=== PATIENT | female | born 1995 | race Caucasian/White ===

== ENCOUNTER → 2018-02-13 | Outpatient (CLI) | payer OTHER ==
[~2018-02-13] MED LIST: Cleocin HCl300 MG PO; Naprosyn500 MG PO; ONDA4 PO
[2018-02-15 04:52] LABS: Source Cervix
== END ==
LOC: LAB SHORT 11:24 → LAB 11:24
PROVIDERS: Registered Nurse Community Health
DX: Z12.4 Encounter for screening for malignant neoplasm of cervix (principal)
CPT/HCPCS: G0123

== ENCOUNTER → 2020-11-24 | Outpatient (CLI) | payer OTHER | LOC: LAB 19:25 → LAB SHORT 19:25 | DX: E03.9 Hypothyroidism, unspecified (principal); R63.5 Abnormal weight gain | CPT/HCPCS: 84443 ==

== ENCOUNTER → 2021-01-22 | Outpatient (CLI) | payer OTHER | LOC: PLD 08:08 → LAB SHORT 08:08 | DX: L81.8 Other specified disorders of pigmentation (principal) | CPT/HCPCS: 88305; 88312 ==

== ENCOUNTER → 2021-02-22 | Outpatient (CLI) | payer OTHER ==
[2021-02-22 20:46] LABS: Free Thyroxine 1.02 ng/dL (0.70-1.60)
[2021-02-22 20:51] LABS: Thyroid Stimulating Hormone 3.48 uIU/mL (0.360-4.800)
== END ==
LOC: LAB 17:15 → LAB SHORT 17:15
PROVIDERS: Registered Nurse Community Health
DX: E03.9 Hypothyroidism, unspecified (principal)
CPT/HCPCS: 84439; 84443

== ENCOUNTER → 2021-04-15 | Outpatient (CLI) | payer OTHER | LOC: LAB 09:44 → LAB SHORT 09:44 | DX: Z09 Encounter for follow-up examination after completed treatment for conditions other than malignant neoplasm (principal); Z86.39 Personal history of other endocrine, nutritional and metabolic disease | CPT/HCPCS: 84443 ==

== ENCOUNTER → 2021-11-29 | Outpatient (CLI) | payer OTHER | END | disposition home or self-care (01) | LOC: LAB SHORT 10:53 | DX: E03.9 Hypothyroidism, unspecified (principal) | CPT/HCPCS: 84443 ==

== ENCOUNTER → 2022-04-18 | Outpatient (CLI) | payer OTHER | LOC: LAB SHORT 19:03 → LAB 19:03 | PROVIDERS: Family Medicine | DX: Z12.4 Encounter for screening for malignant neoplasm of cervix (principal) | CPT/HCPCS: G0123 ==

== ENCOUNTER → 2023-04-07 | Outpatient (CLI) | payer BC ==
[2023-04-07 17:27] LABS: Source, Urine Clean Catch
[2023-04-07 18:38] LABS: Appearance, Urine Clear (Clear); Bilirubin, Urine Neg (Neg); Blood, Urine 4+ (Neg); Color, Urine Yellow (P-Yellow); Glucose Qualitative, Urine Neg (Neg); Ketones, Urine Neg (Neg); Leukocyte Esterase, Urine 2+ (Neg); Nitrite, Urine Neg (Neg); Protein, Urine Neg (Neg); Specific Gravity, Urine 1.015 (1.003-1.022); Urobilinogen, Urine NORM (Normal)
[2023-04-07 19:06] LABS: Bacteria Mod /hpf; Squamous Epithelial Cells Few /hpf (Few)
[2023-04-07 20:14] LABS: BASOPHILS ABSOLUTE AUTO 0.09 K/mm3 (0.00-0.23); BASOPHILS PERCENT AUTO 1 % (0-2); EOSINOPHILS ABSOLUTE AUTO 0.08 K/mm3 (0.00-0.68); EOSINOPHILS PERCENT AUTO 1 % (0-6); Hematocrit 42.9 % (33.0-51.0); Hemoglobin 14.4 g/dL (11.5-16.0); IMMATURE GRAN ABSOLUTE AUTO 0.03 K/mm3 (0.00-0.10); IMMATURE GRAN PERCENT AUTO 0 % (0-1); LYMPHOCYTES ABSOLUTE AUTO 2.48 K/mm3 (0.84-5.20); LYMPHOCYTES PERCENT AUTO 29 % (21-46); MONOCYTES ABSOLUTE AUTO 1.14 K/mm3 (0.16-1.47); MONOCYTES PERCENT AUTO 13 % (4-13); Mean Corpuscular HGB 27.1 pg (26.0-34.0); Mean Corpuscular HGB Conc 33.6 g/dL (31.5-36.5); Mean Corpuscular Volume 81 fL (80-100); Mean Platelet Volume 10.7 fL (9.1-12.4); NEUTROPHILS ABSOLUTE AUTO 4.75 K/mm3 (1.96-9.15); NEUTROPHILS PERCENT AUTO 55 % (41-73); Platelet Count 354 K/mm3 (150-400); RDW Coefficient Variation 14.6 % (11.7-14.2); Red Blood Cell Count 5.31 M/mm3 (3.80-5.20); White Blood Cell Count 8.57 K/mm3 (4.00-11.30)
[2023-04-10 06:07] LABS: HIV AB/P24 AG SCREEN Non Reactive (Non Reactive)
[2023-04-11 07:11] LABS: HBSAG SCREEN Negative (Negative)
== END | disposition home or self-care (01) ==
LOC: LAB 17:24 → LAB SHORT 17:24
PROVIDERS: Registered Nurse Community Health
DX: Z34.91 Encounter for supervision of normal pregnancy, unspecified, first trimester (principal)
CPT/HCPCS: 80055; 81001; 84443; 87086; 87389

== ENCOUNTER → 2023-06-26 | Outpatient (CLI) | payer BC | LOC: LAB 15:15 → LAB SHORT 15:15 | DX: E03.9 Hypothyroidism, unspecified (principal) | CPT/HCPCS: 84443; 86376 ==

== ENCOUNTER → 2023-08-07 | Outpatient (CLI) | payer BC | LOC: LAB 10:55 → LAB SHORT 10:55 | DX: E03.9 Hypothyroidism, unspecified (principal) | CPT/HCPCS: 84443; 86376 ==

== ENCOUNTER → 2023-09-06 | Outpatient (CLI) | payer BC ==
[2023-09-06 12:39] LABS: Hematocrit 37.4 % (33.0-51.0); Hemoglobin 12.7 g/dL (11.5-16.0)
== END | disposition home or self-care (01) ==
LOC: LAB SHORT 08:50 → LAB 08:50
PROVIDERS: Registered Nurse Community Health
DX: Z34.92 Encounter for supervision of normal pregnancy, unspecified, second trimester (principal)
CPT/HCPCS: 82950; 85014; 85018

== ENCOUNTER → 2023-10-03 | Outpatient (CLI) | payer BC ==
[2023-10-05 15:53] LABS: THYROID PEROXIDASE (TPO) AB 42.8 IU/mL (0.0-9.0)
== END ==
LOC: LAB SHORT 17:15
DX: Z34.92 Encounter for supervision of normal pregnancy, unspecified, second trimester (principal)
CPT/HCPCS: 84443; 86376

== ENCOUNTER → 2023-11-01 | Outpatient (CLI) | payer BC ==
[~2023-11-01] MED LIST changes: +1/2 NS 250ml250 ML; +ASPI81CH; +IBUP800 PO; +LEVO T PO; +PANT20 PO; +PRENATAL TABLE1 EAC2 PO
[2023-11-02 14:54] LABS: THYROID PEROXIDASE (TPO) AB 31.9 IU/mL (0.0-9.0)
== END | disposition home or self-care (01) ==
LOC: LAB 12:04 → LAB SHORT 12:04
PROVIDERS: Registered Nurse Community Health
DX: O99.282 Endocrine, nutritional and metabolic diseases complicating pregnancy, second trimester (principal); E03.9 Hypothyroidism, unspecified
CPT/HCPCS: 84443; 86376; 87081; 87150

== ENCOUNTER 2023-11-04 00:55 | Inpatient (IN) | payer BC ==
[~2023-11-04] VITALS: Ht 162.6 cm; Wt 96.4 kg
[2023-11-04] VITALS (16 sets, daily range): BP systolic 114–143; BP diastolic 61–94
[~2023-11-04 00:55] MED LIST changes: -1/2 NS 250ml250 ML; -ASPI81CH; -IBUP800 PO; -LEVO T PO; -PANT20 PO; -PRENATAL TABLE1 EAC2 PO
[2023-11-04] MEDS ORDERED: LEVO T PO (01:45)
[2023-11-04] MEDS ORDERED: ASPI81CH (01:46)
[2023-11-04] MEDS ORDERED: PANT20 PO (01:46)
[2023-11-04] MEDS ORDERED: PRENATAL TABLE1 EAC2 PO (01:46)
[2023-11-04] MEDS ORDERED: 1/2 NS 250ml250 ML (01:46)
[2023-11-04 03:08] LABS: BASOPHILS ABSOLUTE AUTO 0.08 K/mm3 (0.00-0.23); BASOPHILS PERCENT AUTO 0 % (0-2); EOSINOPHILS ABSOLUTE AUTO 0.15 K/mm3 (0.00-0.68); EOSINOPHILS PERCENT AUTO 1 % (0-6); Hematocrit 35.6 % (33.0-51.0); Hemoglobin 11.6 g/dL (11.5-16.0); IMMATURE GRAN ABSOLUTE AUTO 0.11 K/mm3 (0.00-0.10); IMMATURE GRAN PERCENT AUTO 1 % (0-1); LYMPHOCYTES PERCENT AUTO 13 % (21-46); MONOCYTES ABSOLUTE AUTO 1.54 K/mm3 (0.16-1.47); MONOCYTES PERCENT AUTO 8 % (4-13); Mean Corpuscular HGB 25.2 pg (26.0-34.0); Mean Corpuscular HGB Conc 32.6 g/dL (31.5-36.5); Mean Corpuscular Volume 77 fL (80-100); Mean Platelet Volume 10.5 fL (9.1-12.4); NEUTROPHILS ABSOLUTE AUTO 13.95 K/mm3 (1.96-9.15); NEUTROPHILS PERCENT AUTO 77 % (41-73); Platelet Count 412 K/mm3 (150-400); RDW Coefficient Variation 13.2 % (11.7-14.2); Red Blood Cell Count 4.61 M/mm3 (3.80-5.20); White Blood Cell Count 18.23 K/mm3 (4.00-11.30)
[2023-11-05 04:09] VITALS: BP 125/83
[2023-11-05 08:01] VITALS: BP 137/93
[2023-11-05] MEDS ORDERED: IBUP800 PO ×2 (16:37→16:38)
[2023-11-05 17:29] VITALS: BP 139/87
--- NOTE | 2023-11-05 17:41 | NUR ---
dc home with baby. has ppfu appt , dcinstructions, picked up scripts, denies any questions encouraged to call if has any, sent home with 5 120cc donormilk bottles for baby
== END 2023-11-05 17:35 | disposition home or self-care (01) | DRG 807 ==
LOC: OBS 00:55 → BC 01:00 → OBS 01:22 → BC 01:23
PROVIDERS: ADMIT Registered Nurse Community Health
PROC: 10E0XZZ Delivery of Products of Conception, External Approach (ICD-10-PCS; principal; 2023-11-04)
PROC: 0HQ9XZZ Repair Perineum Skin, External Approach (ICD-10-PCS; 2023-11-04)
DX: O99.62 Diseases of the digestive system complicating childbirth (principal); Z37.0 Single live birth; K21.9 Gastro-esophageal reflux disease without esophagitis; O76 Abnormality in fetal heart rate and rhythm complicating labor and delivery; Z88.0 Allergy status to penicillin; Z79.899 Other long term (current) drug therapy; Z79.82 Long term (current) use of aspirin; Z79.84 Long term (current) use of oral hypoglycemic drugs; Z79.890 Hormone replacement therapy; O70.0 First degree perineal laceration during delivery; Z3A.36 36 weeks gestation of pregnancy; O99.282 Endocrine, nutritional and metabolic diseases complicating pregnancy, second trimester; E03.9 Hypothyroidism, unspecified
CPT/HCPCS: 36415; 59025; 84443; 85025; 86376; 86850; 86900; 86901; 87081; 87150; A9270; J2590; J7120

== ENCOUNTER → 2023-12-01 | Outpatient (CLI) | payer BC ==
[~2023-12-01] MED LIST changes: +1/2 NS 250ml250 ML; +ASPI81CH; +IBUP800 PO; +LEVO T PO; +PANT20 PO; +PRENATAL TABLE1 EAC2 PO
[2023-12-01 14:11] LABS: Free Thyroxine 1.29 ng/dL (0.70-1.60); Thyroid Stimulating Hormone 0.088 uIU/mL (0.360-4.800); Triiodothyronine, Free 2.8 pg/mL (2.18-3.98)
[2023-12-01 14:24] LABS: Prolactin 266.2 ng/mL
== END ==
LOC: LAB 11:41 → LAB SHORT 11:41
PROVIDERS: Registered Nurse Community Health
DX: E03.9 Hypothyroidism, unspecified (principal)
CPT/HCPCS: 82533; 84146; 84439; 84443; 84481; 86376

== ENCOUNTER → 2023-12-15 | Outpatient (CLI) | payer BC ==
[2023-12-15 19:21] LABS: Free Thyroxine 0.93 ng/dL (0.70-1.60)
[2023-12-15 19:23] LABS: Thyroid Stimulating Hormone 0.358 uIU/mL (0.360-4.800); Triiodothyronine, Free 2.72 pg/mL (2.18-3.98)
[2023-12-18 12:43] LABS: THYROID PEROXIDASE (TPO) AB 62.7 IU/mL (0.0-9.0)
== END ==
LOC: LAB 17:03 → LAB SHORT 17:03
PROVIDERS: Registered Nurse Community Health
DX: E03.9 Hypothyroidism, unspecified (principal)
CPT/HCPCS: 84439; 84443; 84481; 86376

== ENCOUNTER → 2024-12-11 | Outpatient (CLI) | payer OTHER ==
[2024-12-12 17:06] LABS: THYROID PEROXIDASE (TPO) AB 112.4 IU/mL (0.0-9.0)
== END | disposition home or self-care (01) ==
LOC: LAB 14:43 → LAB SHORT 14:43
PROVIDERS: Family Medicine
DX: E06.3 Autoimmune thyroiditis (principal); E56.9 Vitamin deficiency, unspecified
CPT/HCPCS: 82306; 84443; 86376

== ENCOUNTER → 2025-05-21 | Outpatient (CLI) | payer OTHER ==
[2025-05-21 21:49] LABS: Ferritin, Serum 23.0 ng/mL (8-252); Thyroid Stimulating Hormone 3.32 uIU/mL (0.360-4.800)
[2025-05-23 16:58] LABS: THYROID PEROXIDASE (TPO) AB 96.4 IU/mL (0.0-9.0)
== END | disposition home or self-care (01) ==
LOC: LAB 17:59 → LAB SHORT 17:59
PROVIDERS: Family Medicine
DX: E03.9 Hypothyroidism, unspecified (principal); E61.1 Iron deficiency
CPT/HCPCS: 82728; 84443; 86376